=== PATIENT | female | born 1980 | race Two or more races ===

== ENCOUNTER 2023-12-26 19:00 | Emergency (ER) | payer OTHER ==
[2023-12-26] MEDS: PERTUSS(ACELL),DIPH,TET/PF 0.5 ML SYRINGE [ADULT] IM. ONE (21:38)
== END 2023-12-26 21:48 | disposition home or self-care (01) ==
LOC: EMS 19:00
DX: S91.051A Open bite, right ankle, initial encounter (principal); W55.01XA Bitten by cat, initial encounter; Y93.89 Activity, other specified; Y92.89 Other specified places as the place of occurrence of the external cause; Y99.8 Other external cause status
CPT/HCPCS: 90471; 90715; 99283